=== PATIENT | female | born 1985 | race Caucasian/White ===

== ENCOUNTER 2016-05-08 11:31 | Emergency (ER) | payer OTHER ==
[~2016-05-08] VITALS: Ht 167.6 cm; Wt 137.7 kg
[~2016-05-08 11:31] MED LIST: AUGMENTIN875 MG PO; DIALYVITE 801 TABLET PO; METFORMIN HCL500 M1 PO; MOTRIN800 MG PO; Motrin PO; NOHOMEMEDS; PROAIR HFA8.5 GM IH; Percocet 5/325,Endoc PO; RHINOCORT AQUA8.6 G1 NS; TESSALON PERLE100 MG PO; ZOFRAN ODT4 MG PO; ~No Medications
[2016-05-08 12:21] LABS: ADD MIUA? YES; BILIRUBIN NEGATIVE; BLOOD MODERATE; COLOR YELLOW ((YELLOW)); GLUCOSE (STRIP) 50; KETONES NEGATIVE; LEUKOCYTES NEGATIVE; NITRITE NEGATIVE; PROTEIN (STRIP) >=500; SPECIFIC GRAVITY 1.023 (1.000-1.030); UROBILINOGEN 0.2 MG/DL (0.2-1.0)
[2016-05-08 12:36] LABS: BACTERIA RARE /HPF; EPITHELIAL CELLS 2+ /HPF; HYALINE CASTS 0-5 /LPF; MUCUS 1+ /LPF; RED BLOOD CELLS 0-5 /HPF (0-5); UCUL ADDED? NO; WHITE BLOOD CELLS CLUMP RARE /HPF (0-5)
[2016-05-08 12:37] LABS: HEMATOCRIT 36.1 % (36.0-46.0); MCH 27.2 PG (29.0-34.0); MCV 82.6 FL (83-99); PLATELET COUNT 344 K/uL (156-360); RBC DIS.WIDTH-CV 15.1 % (11.8-14.6); RBC DIS.WIDTH-SD 44.6 % (39-53); RED BLOOD COUNT 4.37 M/uL (3.80-5.20); WHITE BLOOD COUNT 12.4 K/uL (4.1-10.2)
[2016-05-08 12:53] LABS: CHLORIDE 104 mEq/L (99-109); SODIUM 139 mEq/L (136-147)
[2016-05-08 12:55] LABS: GLUCOSE 215 mg/dL (70-99)
[2016-05-08 12:56] LABS: ANION GAP 12 MEQ/L (2-14)
[2016-05-08 12:59] LABS: GFR ESTIMATE (CALCULATED) > 59 mL/min/; UREA NITROGEN (BUN) 13 mg/dL (9-23)
[2016-05-08 13:03] LABS: TROP-I INTERPRETATION NEGATIVE; TROPONIN-I < 0.01 ng/mL (0.0-0.30)
[2016-05-08 13:07] LABS: QUANTITATIVE HCG < 4.0 MIU/ML
[2016-05-08] MEDS ORDERED: ZOFRAN ODT4 MG PO (13:48)
[2016-05-08 14:03] VITALS: BP 142/89
== END 2016-05-08 14:24 | disposition home or self-care (01) ==
LOC: EME 11:31
PROVIDERS: Emergency Medicine
DX: R07.9 Chest pain, unspecified (principal); E11.65 Type 2 diabetes mellitus with hyperglycemia; D72.829 Elevated white blood cell count, unspecified; R53.81 Other malaise; I10 Essential (primary) hypertension; Z79.84 Long term (current) use of oral hypoglycemic drugs; Z91.013 Allergy to seafood; Z91.040 Latex allergy status
CPT/HCPCS: 71020; 80048; 81003; 84484; 84702; 85027; 85379; 93005; 99281; 99284; J2405; J7030

== ENCOUNTER 2016-11-17 17:06 | Inpatient (IN) | payer OTHER ==
[~2016-11-17] VITALS: Ht 167.6 cm; Wt 130.8 kg
[2016-11-17 18:01] LABS: HEMATOCRIT 35.5 % (36.0-46.0); MCH 28.3 PG (29.0-34.0); MCHC 34.1 G/DL (30.0-36.0); MCV 82.9 FL (83-99); MEAN PLAT.VOLUME 9.6 uM^3 (9.5-12.4); PLATELET COUNT 290 K/uL (156-360); RBC DIS.WIDTH-CV 13.7 % (11.8-14.6); RBC DIS.WIDTH-SD 41.4 % (39-53); RED BLOOD COUNT 4.28 M/uL (3.80-5.20); WHITE BLOOD COUNT 11.8 K/uL (4.1-10.2)
[2016-11-17 18:13] LABS: CHLORIDE 104 mEq/L (99-109); POTASSIUM 3.6 mEq/L (3.7-5.4); SODIUM 141 mEq/L (136-147)
[2016-11-17 18:15] LABS: GLUCOSE 142 mg/dL (70-99)
[2016-11-17 18:17] LABS: ANION GAP 15 MEQ/L (2-14)
[2016-11-17 18:19] LABS: GFR ESTIMATE (CALCULATED) > 59 mL/min/
[2016-11-17 18:20] LABS: UREA NITROGEN (BUN) 13 mg/dL (9-23)
[2016-11-17 18:25] LABS: TROP-I INTERPRETATION NEGATIVE; TROPONIN-I < 0.01 ng/mL (0.0-0.30)
[2016-11-17] MEDS ORDERED: HYDROCHLOROTHIA25 MG PO (19:26)
[2016-11-17] MEDS ORDERED: HUMULIN N100 UNITS/ SC ×2 (19:28→19:29)
[2016-11-17] MEDS ORDERED: HUMALOG100 UNIT/1 SC (19:28)
[2016-11-17] MEDS ORDERED: SPRINTEC1 EACH PO (19:29)
[2016-11-17] MEDS ORDERED: TRULICITY1.5 MG/0.5 SC (19:29)
[2016-11-17] MEDS ORDERED: LO-DOSE ASPIRIN81 M2 PO (21:20)
[2016-11-17 21:47] LABS: TROP-I INTERPRETATION NEGATIVE; TROPONIN-I 0.18 ng/mL (0.0-0.30)
[2016-11-17 23:30] VITALS: BP 155/88
[2016-11-18] VITALS (8 sets, daily range): BP systolic 127–173; BP diastolic 65–91
[2016-11-18 01:11] LABS: TROP-I INTERPRETATION POSITIVE
[2016-11-18 01:13] LABS: TROPONIN-I 0.77 ng/mL (0.0-0.30)
[2016-11-18 02:35] LABS: PTT 30.3 SEC (25-37)
[2016-11-18 09:11] LABS: TROP-I INTERPRETATION POSITIVE
[2016-11-18 09:12] LABS: TROPONIN-I 2.19 ng/mL (0.0-0.30)
[2016-11-18 09:18] LABS: HEMATOCRIT 34.6 % (36.0-46.0); MCHC 33.2 G/DL (30.0-36.0); MCV 84.2 FL (83-99); MEAN PLAT.VOLUME 10.5 uM^3 (9.5-12.4); PLATELET COUNT 315 K/uL (156-360); RBC DIS.WIDTH-CV 13.8 % (11.8-14.6); RBC DIS.WIDTH-SD 42.7 % (39-53); RED BLOOD COUNT 4.11 M/uL (3.80-5.20); WHITE BLOOD COUNT 11.3 K/uL (4.1-10.2)
[2016-11-18 09:40] LABS: ANION GAP 9 MEQ/L (2-14); CHLORIDE 105 MEQ/L (99-109); GFR ESTIMATE (CALCULATED) > 59 mL/min/; GLUCOSE 110 mg/dL (70-99); POTASSIUM 4.2 MEQ/L (3.7-5.4); SAMPLE HEMOLYSIS CHECK 0; SAMPLE ICTERIC CHECK 0; SAMPLE LIPEMIA CHECK 0; SODIUM 139 MEQ/L (136-147); UREA NITROGEN (BUN) 10 mg/dL (9-23)
[2016-11-18 21:42] LABS: POINT-OF-CARE METER ID UU13113781
[2016-11-18 23:52] LABS: POINT-OF-CARE METER ID UU13113781
[2016-11-19 04:22] VITALS: BP 135/79
[2016-11-19 07:25] LABS: HEMATOCRIT 35.9 % (36.0-46.0); MCH 28.3 PG (29.0-34.0); MCHC 33.7 G/DL (30.0-36.0); MCV 84.1 FL (83-99); MEAN PLAT.VOLUME 10.1 uM^3 (9.5-12.4); PLATELET COUNT 268 K/uL (156-360); RBC DIS.WIDTH-CV 13.6 % (11.8-14.6); RED BLOOD COUNT 4.27 M/uL (3.80-5.20); WHITE BLOOD COUNT 9.8 K/uL (4.1-10.2)
[2016-11-19 07:45] VITALS: BP 160/63
[2016-11-19 09:13] LABS: POINT-OF-CARE METER ID UU13113698; POINT-OF-CARE USER ID NUTSLF44
[2016-11-19 09:22] LABS: ANION GAP 11 MEQ/L (2-14); CHLORIDE 104 MEQ/L (99-109); SAMPLE HEMOLYSIS CHECK 0; SAMPLE ICTERIC CHECK 0; SAMPLE LIPEMIA CHECK 0; SODIUM 140 MEQ/L (136-147)
[2016-11-19 09:27] LABS: GFR ESTIMATE (CALCULATED) > 59 mL/min/; GLUCOSE 101 mg/dL (70-99); UREA NITROGEN (BUN) 11 mg/dL (9-23)
[2016-11-19 16:40] LABS: POINT-OF-CARE METER ID UU13113819
[2016-11-19 17:25] VITALS: BP 158/91
[2016-11-19 20:00] VITALS: BP 152/73
[2016-11-19 21:09] LABS: POINT-OF-CARE METER ID UU13113698
[2016-11-20 00:47] VITALS: BP 120/59
[2016-11-20 04:37] VITALS: BP 117/58
[2016-11-20 05:55] LABS: HEMATOCRIT 33.2 % (36.0-46.0); MCH 29.2 PG (29.0-34.0); MCHC 34.3 G/DL (30.0-36.0); MCV 85.1 FL (83-99); MEAN PLAT.VOLUME 10.4 uM^3 (9.5-12.4); PLATELET COUNT 276 K/uL (156-360); RBC DIS.WIDTH-CV 13.9 % (11.8-14.6); RBC DIS.WIDTH-SD 43.3 % (39-53); WHITE BLOOD COUNT 8.6 K/uL (4.1-10.2)
[2016-11-20 06:11] LABS: ANION GAP 9 MEQ/L (2-14); CHLORIDE 103 MEQ/L (99-109); GFR ESTIMATE (CALCULATED) > 59 mL/min/; GLUCOSE 132 mg/dL (70-99); POTASSIUM 4.1 MEQ/L (3.7-5.4); SAMPLE HEMOLYSIS CHECK 0; SAMPLE ICTERIC CHECK 0; SAMPLE LIPEMIA CHECK 0; SODIUM 139 MEQ/L (136-147); UREA NITROGEN (BUN) 12 mg/dL (9-23)
[2016-11-20 06:54] LABS: Estimated Average Glucose 143 mg/dL (70-123); HEMOGLOBIN A1c (GLYCOHEMOGLOB) 6.6 % HGB (Below 5.7)
[2016-11-20 07:40] VITALS: BP 136/67
[2016-11-20 08:15] VITALS: BP 136/67
[2016-11-20 09:08] LABS: POINT-OF-CARE METER ID UU13113698
[2016-11-20] MEDS ORDERED: PRAVASTATIN SOD80 MG PO (10:29)
[2016-11-20] MEDS ORDERED: LOPRESSOR50 MG PO (10:29)
[2016-11-20] MEDS ORDERED: CLOPIDOGREL75 MG PO (10:29)
[2016-11-20] MEDS ORDERED: NITROSTAT0.4 MG SL (10:29)
[2016-11-20] MEDS ORDERED: ASPIR-LOW81 MG PO (10:29)
[2016-11-20 10:39] LABS: TROP-I INTERPRETATION INDETERMINATE; TROPONIN-I 0.42 ng/mL (0.0-0.30)
== END 2016-11-20 12:30 | disposition home or self-care (01) | DRG 281 ==
LOC: EME 17:06 → EDOF 21:24 → ENRESERV 21:25 → 5WEST 23:10 → 4EAST 11-18 11:46 → ENRESERV 11-18 12:23 → 4EAST 11-18 17:10
PROVIDERS: Hospitalist; Internal Medicine; Physician Assistant Medical
PROC: 4A023N7 Measurement of Cardiac Sampling and Pressure, Left Heart, Percutaneous Approach (ICD-10-PCS; principal; 2016-11-19)
PROC: B2151ZZ Fluoroscopy of Left Heart using Low Osmolar Contrast (ICD-10-PCS; principal; 2016-11-19)
PROC: B2111ZZ Fluoroscopy of Multiple Coronary Arteries using Low Osmolar Contrast (ICD-10-PCS; principal; 2016-11-19)
DX: I21.4 Non-ST elevation (NSTEMI) myocardial infarction (principal); E11.9 Type 2 diabetes mellitus without complications; I10 Essential (primary) hypertension; E78.5 Hyperlipidemia, unspecified; E66.01 Morbid (severe) obesity due to excess calories; I25.10 Atherosclerotic heart disease of native coronary artery without angina pectoris; I73.9 Peripheral vascular disease, unspecified; F17.210 Nicotine dependence, cigarettes, uncomplicated; Z68.42 Body mass index [BMI] 45.0-49.9, adult; I45.9 Conduction disorder, unspecified; Z79.899 Other long term (current) drug therapy; Z79.4 Long term (current) use of insulin; Z79.02 Long term (current) use of antithrombotics/antiplatelets; Z79.82 Long term (current) use of aspirin; Z91.013 Allergy to seafood; Z82.49 Family history of ischemic heart disease and other diseases of the circulatory system
CPT/HCPCS: 71020; 80048; 82948; 83036; 84484; 85027; 85347; 85379; 85610; 85730; 90686; 93005; 93306; 99281; 99285; C1760; C1769; C1887; C1894; G0378; J1644; J1650; J1815; J2250; J2270; J2405; J3010; J7030

== ENCOUNTER 2017-02-23 03:45 | Emergency (ER) | payer OTHER ==
[~2017-02-23] VITALS: Ht 167.6 cm; Wt 131.9 kg
[~2017-02-23 03:45] MED LIST changes: +ASPIR-LOW81 MG PO; +CLOPIDOGREL75 MG PO; +HUMALOG100 UNIT/1 SC; +HUMULIN N100 UNITS/ SC; +HYDROCHLOROTHIA25 MG PO; +LO-DOSE ASPIRIN81 M2 PO; +LOPRESSOR50 MG PO; +NITROSTAT0.4 MG SL; +PRAVASTATIN SOD80 MG PO; +SPRINTEC1 EACH PO; +TRULICITY1.5 MG/0.5 SC
[2017-02-23] MEDS ORDERED: ROBITUSSIN AC,T10 ML PO (05:40)
[2017-02-23] MEDS ORDERED: MOTRIN800 MG PO (05:40)
[2017-02-23] MEDS ORDERED: ZOFRAN ODT4 MG PO (05:43)
[2017-02-23 05:59] VITALS: BP 121/88
== END 2017-02-23 06:00 | disposition home or self-care (01) ==
LOC: EME 03:45
PROVIDERS: Physician Assistant
DX: J10.1 Influenza due to other identified influenza virus with other respiratory manifestations (principal); R51 Headache; R11.0 Nausea; I10 Essential (primary) hypertension; E11.9 Type 2 diabetes mellitus without complications; Z79.4 Long term (current) use of insulin; Z79.82 Long term (current) use of aspirin; F17.200 Nicotine dependence, unspecified, uncomplicated
CPT/HCPCS: 87502; 99281; 99284